=== PATIENT | female | born 1955 | race African-American/Black ===

== ENCOUNTER → 2017-03-22 | Outpatient (CLI) | payer BC ==
[~2017-03-22] MED LIST: DIOVAN PO; FERRO-SEQUEL
--- NOTE | ~2017-03-22 | MY29 ---
[facility] A Service of [facility] RADIOLOGY TEXT RESULTS PATIENT: RAMSES CHUNG LOCATION: [facility] : 51 UNIT #: [id number] AGE: [address]: SHREYA ACUNA APRN SEX: F ORDER DR: [id number] [facility] [address] [place], [place] [address] [id number] O MR#: [id number] Acc #: [id number] NAME: RAMSES CHUNG : 1955 SEX: F STUDY DATE/TIME: 03/22/2017 12:53 UNIT: [facility] ROOM: STUDY DESCRIPTION: MY RICHARDSON SCREENING W/ CAD BILAT Attending Physician: Shreya Acuna Aprn Referring Physician: Shreya Acuna Aprn Ordering Physician: Shreya Acuna Aprn Primary Care Physician: Shreya Acuna Aprn MEDICAL IMAGING REPORT This report is preliminary unless electronic signature is present EXAM Digital screening mammogram, 03/22/2017 HISTORY 61-year-old woman no risk elevation. Annual screening. COMPARISON Mammograms date to 06/28/2008 with most recent 05/01/2013 from [facility] [place] [facility]. FINDINGS Digital imaging of each breast was completed utilizing screening protocol. Review includes FDA approved CAD device. The breast parenchyma is moderately dense with generalized parenchymal fibronodularity. Dominance throughout the left breast, particularly 6 o'clock axis is stable. Subareolar duct prominence bilaterally dominant on the left is stable as well. I see no suspicious mass characteristics. There are no interval occurring microcalcifications and no suspicious architectural deformity. IMPRESSION Benign mammogram. Annual screening recommended. Patients over the age of 40 are entered into a reminder system with target due date for the next mammogram. A result letter will also be sent to the patient. BIRADS: 2 Benign Finding Dictated by... Felix Treviño M.D. THIS IS AN ELECTRONICALLY VERIFIED REPORT Felix Treviño M.D. at 03/23/2017 1:03 PM [facility] A Service of [facility] RADIOLOGY TEXT RESULTS PATIENT: RAMSES CHUNG LOCATION: [facility] : 51 UNIT #: [id number] AGE: [address]: SHREYA ACUNA APRN SEX: F ORDER DR: Mariusz TD: 03/23/2017 12:34 JOB #: [id number] MEDICAL IMAGING REPORT Page 1 of 1 COPY
== END | disposition home or self-care (01) ==
LOC: CWCC 12:24
DX: Z12.31 Encounter for screening mammogram for malignant neoplasm of breast (principal)
CPT/HCPCS: G0202